=== PATIENT | female | born 1955 | race Caucasian/White ===

== ENCOUNTER → 2019-11-26 | Outpatient (CLI) | payer MEDICARE, OTHER ==
[2019-11-26 12:37] LABS: BUN/CREATININE RATIO 13; GFR ESTIMATED > 60
--- NOTE | 2019-11-26 13:52 | Diagnostic Imaging Report ---
EXAMINATION: CT Chest with intravenous contrast. TECHNIQUE: Multiple contiguous axial images were obtained through the chest after the uneventful administration of intravenous contrast. All CT scans use one or more of the following dose optimizing techniques: automated exposure control, MA and/or KvP adjustment based on a patient size and exam type, or iterative reconstruction. HISTORY: DYSPNEA, ABN FINDING LUNG FIELD COMPARISON: None available. FINDINGS: The lungs are clear without edema or pneumonia. No pleural effusion or pneumothorax. There is a 14 x 9 mm right upper lobe pulmonary nodule. This contains internal low attenuating areas on the axial images but not on the sagittal images which are thinner. Heart size is normal. No pericardial effusion. Aorta is normal in caliber. There is no axillary or supraclavicular lymphadenopathy. There is no mediastinal lymphadenopathy. Limited views of the upper abdomen are unremarkable. There are no suspicious osseous lesions. IMPRESSION: 1. Indeterminate 14 x 9 mm right upper lobe pulmonary nodule. This may contain internal areas of fat, but this could be due to partial volume averaging on the thicker axial slices. Differential is lung malignancy, metastatic disease or less likely hamartoma. Dictated by: Dictated on workstation # [id number]
== END ==
LOC: RAD 12:06
PROVIDERS: ATTEND Internal Medicine Critical Care Medicine
DX: J45.909 Unspecified asthma, uncomplicated (principal); R91.1 Solitary pulmonary nodule; Z72.0 Tobacco use
CPT/HCPCS: 36415; 71260; 82164; 82330; 82565; 84520

== ENCOUNTER → 2019-11-26 | Outpatient (CLI) | payer MEDICARE, OTHER ==
[~2019-11-26] MED LIST: HOLD METFORMIN - RECEIVED CONTRAST 20 ML VIAL IV SCH; IOHEXOL 350 MG/ML 100 ML (OMNIPAQUE 350) VIAL IV ONE; NS 100 ML (IVPB) BAG IV ONE
--- NOTE | 2019-11-26 14:44 | Diagnostic Imaging Report ---
PROCEDURE: CT neck soft tissue with contrast. TECHNIQUE: Multiple contiguous axial images were obtained through the neck after the administration of contrast. Auto Exposure Controls were utilized during the CT exam to meet ALARA standards for radiation dose reduction. INDICATION: Abnormal metabolic activity in the left tonsillar region on PET/CT. COMPARISON: None available. FINDINGS: There is slight asymmetric prominence of the left tonsillar region versus the right without focal mass or abnormal enhancement. The posterior nasopharynx and oropharynx demonstrate appropriate symmetry. There is no displacement of the parapharyngeal fat planes. There is no abnormal process evident within the prevertebral or retropharyngeal space. There is no evidence of abnormal thickening of the epiglottis or aryepiglottic folds. The vocal folds appear symmetric. The parotid and submandibular glands are unremarkable. A nodule is seen in the right lobe of the thyroid measuring 1.4 x 1.1 cm. No pathologically enlarged cervical lymph nodes are evident. No focal inflammatory changes are demonstrated. No soft tissue mass or fluid collection demonstrated. The vascular structures the neck demonstrate no evidence of high-grade stenosis on this nondedicated exam. The visualized lung apices are clear. The visualized intracranial contents demonstrate no evidence of pathologic intracranial enhancement or intracranial mass effect. Visualized orbital contents are unremarkable. The visualized paranasal sinuses are clear. The mastoids and middle ears are clear. The patient is edentulous. There are mild degenerative features within the cervical spine without CT evidence of an acute or suspicious osseous abnormality. Cervical spine alignment appears within normal limits. IMPRESSION: 1. Mild asymmetric prominence of the left tonsillar region relative to the right without focal mass or abnormal enhancement. This may represent inflammatory or infectious process or represent a normal anatomic variant. The PET/CT referred to in the reason for exam is not available for comparison at this time. 2. No evidence of pathologic adenopathy. 3. Nodule in the right lobe of the thyroid measuring 1.4 x 1.1 cm. Consider further evaluation with thyroid ultrasound and correlation with TSH values. Dictated by: Dictated on workstation # [id number]
== END ==
LOC: RAD 12:03
PROVIDERS: ATTEND Otolaryngology Otolaryngology/Facial Plastic Surgery
DX: E04.1 Nontoxic single thyroid nodule (principal)
CPT/HCPCS: 70491

== ENCOUNTER → 2020-01-28 | Outpatient (CLI) | payer MEDICARE, OTHER ==
[2020-01-28 07:43] LABS: BUN/CREATININE RATIO 21; CREATININE SERUM 0.77 MG/DL (0.60-1.30); GFR ESTIMATED > 60
--- NOTE | 2020-01-28 08:40 | Diagnostic Imaging Report ---
CT CHEST W TECHNIQUE: Multiple contiguous axial images were obtained through the chest with the use of intravenous contrast. All CT scans use one or more of the following dose optimizing techniques: automated exposure control, MA and/or KvP adjustment based on a patient size and exam type, or iterative reconstruction. INDICATION: Follow-up pulmonary nodule. Pneumonia. COMPARISON: CT chest from 11/26/2019 FINDINGS: Lungs and airway: No endoluminal nodule within trachea. No pulmonary mass or consolidation. No new pulmonary nodule. The right upper lobe polylobulated nodule has likely not changed significantly in size allowing for differences in technique (today's exam is performed with 3.75 mm thickness versus prior exam 5 mm thickness). Based on today's examination, the nodule measures 16 x 11 mm versus 15 x 10 mm when measured similarly. Adjacent irregular spiculations are unchanged. Scattered calcified pulmonary nodules are stable. Pleura: No pleural effusion or pneumothorax. Heart and mediastinum: Stable subcentimeter nodule within the right thyroid lobe which is likely of benign etiology no pars noted. Follow-up imaging based on imaging characteristics by CT. No supraclavicular or axillary lymphadenopathy. No mediastinal, hilar or juxtaphrenic lymphadenopathy. Calcified mediastinal and hilar lymph nodes are stable and compatible with old granulomatous infection. Upper abdomen: Stable diffuse hypoattenuation of the liver suggestive of hepatic steatosis. Cholecystectomy. No acute abnormality. Musculoskeletal: No lytic or blastic skeletal lesions. IMPRESSION: 1. Allowing for differences in technique, the right upper lobe polylobulated pulmonary nodule is stable to slightly increased in size since prior exam. Given persistence, this must be considered a primary lung cancer until proven otherwise. PET/CT or biopsy is recommended for further assessment. 2. No features of intrathoracic metastases. Dictated by: Dictated on workstation # [id number]
== END ==
LOC: RAD 07:07
PROVIDERS: ATTEND Internal Medicine Critical Care Medicine
DX: J18.9 Pneumonia, unspecified organism (principal); R91.8 Other nonspecific abnormal finding of lung field; Z90.49 Acquired absence of other specified parts of digestive tract
CPT/HCPCS: 36415; 71260; 82565; 84520

== ENCOUNTER → 2020-05-25 | Outpatient (CLI) | payer MEDICARE, OTHER ==
[~2020-05-25] MED LIST changes: -HOLD METFORMIN - RECEIVED CONTRAST 20 ML VIAL IV SCH; -IOHEXOL 350 MG/ML 100 ML (OMNIPAQUE 350) VIAL IV ONE; -NS 100 ML (IVPB) BAG IV ONE; +RT-ALBUTEROL SULF 2.5 MG/3 ML PRE-MIX VIAL INH ONE
== END ==
LOC: RT 09:51
PROVIDERS: ATTEND Nurse Practitioner Family
DX: J45.909 Unspecified asthma, uncomplicated (principal); Z72.0 Tobacco use
CPT/HCPCS: 94060; 94726; 94729